=== PATIENT | female | born 1960 | race Caucasian/White ===

== ENCOUNTER → 2016-06-26 | Outpatient (CLI) | payer OTHER ==
--- NOTE | 2016-06-26 09:43 | US ---
EXAMINATION TYPE: US abdomen complete DATE OF EXAM: 06/26/2016 8:31 AM COMPARISON: 12/16/2012 CLINICAL HISTORY: 56-year-old female abdominal RUQ Pain R10.11. Right flank pain, sometimes worse aft er eating. TECHNIQUE: Multiple sonographic images of the abdomen were obtained. FINDINGS: Liver Length: 14.8 cm Gallbladder Wall: 0.2 cm CBD: 0.5 cm Spleen: 7.9 cm Right Kidney: 9.2 x 3.3 x 4.3 cm Left Kidney: 9.3 x 4.4 x 4.6 cm Pancreas: Suboptimal visualization of the pancreatic tail secondary to shadowing from bowel gas. Vis ualized portions appear within normal limits. Liver: Normal size but with increased echogenicity. There is a small 1.1cm septated cyst within the left lobe. A couple adjacent cysts measuring up to 9 mm were seen previously. Overall appearance is u nchanged. Gallbladder: No abnormal gallbladder distention, wall thickening, pericholecystic fluid, or shadowin g calculi. Evidence for sonographic Ya's sign: no CBD: Within normal limits. Spleen: wnl Right Kidney: No hydronephrosis. Left Kidney: No hydronephrosis. Upper IVC: wnl Abd Aorta: wnl as seen IMPRESSION: Echogenic and slightly attenuating liver suggesting hepatic steatosis. Correlate with LFTs, lipid pro file, and patient risk factors. 2 adjacent cysts versus a septated cyst is redemonstrated within the left hepatic lobe measuring 1.1 cm.
== END | disposition home or self-care (01) ==
LOC: RADUSWWP 08:10
PROVIDERS: ATTEND Family Medicine
DX: R10.11 Right upper quadrant pain (principal)
CPT/HCPCS: 76700

== ENCOUNTER → 2016-08-20 | Outpatient (CLI) | payer OTHER ==
--- NOTE | 2016-08-20 09:32 | NM ---
EXAMINATION TYPE: NM hepatobiliary w EF DATE OF EXAM: 08/20/2016 9:16 AM COMPARISON: NONE INDICATION: Right upper quadrant pain TECHNIQUE: After the intravenous administration of 5.4 mCi Tc 99m Mebrofenin hepatobiliary scintigrap hy is performed. Images were obtained immediately post injection. FINDINGS: There is prompt uptake and excretion of radiotracer by the liver. Extrahepatic ducts are identified at 4 minutes. The gallbladder is visualized within 6 minutes. Small bowel activity is noted within 40 minutes. At one hour 8 ounces of oral ensure plus is given to mimic CCK and gallbladder ejection fraction is c alculated at 88 %, which is elevated. (Normal >35% and <80%.). IMPRESSION: 1. Biliary hyperkinesia.
== END | disposition home or self-care (01) ==
LOC: RADNMMAIN 07:00
PROVIDERS: ATTEND Family Medicine
DX: K82.8 Other specified diseases of gallbladder (principal); R10.11 Right upper quadrant pain
CPT/HCPCS: 78226; A9537

== ENCOUNTER → 2017-04-18 | Outpatient (CLI) | payer OTHER ==
--- NOTE | 2017-04-21 07:58 | MM ---
Reason for exam: additional evaluation requested from prior study. Last mammogram was performed 1 year ago. History: Patient is postmenopausal and has history of breast cancer at age 42. Family history of breast cancer in paternal aunt at age 82. Retro-pectoral saline implants in both breasts, June 2004. Malignant stereotactic core biopsy of the right breast, December 16, 2002. Saline implants in both breasts. Core biopsy of the right breast. Excisional biopsy of the left breast. Lumpectomy of the right breast. Radiation therapy of the right breast. Implant Removal of both breasts. Took tamoxifen for 5 years beginning at age 42. Physical Findings: Nurse did not find any significant physical abnormalities on exam. MG Diag Mamm Implants AMP[facility]O w CAD Bilateral CC, MLO, and ID view(s) were taken. Prior study comparison: April 17, 2016, bilateral MG 3d diag mammo imp w/cad [facility]. May 24, 2014, bilateral MG diagnostic mammo w CAD [facility]. The breast tissue is heterogeneously dense. This may lower the sensitivity of mammography. Stable post lumpectomy changes in the right breast. Bilateral implants are intact. No significant new findings when compared with previous films. These results were verbally communicated with the patient and result sheet given to the patient on 04/18/17. ASSESSMENT: Benign, BI-RAD 2 RECOMMENDATION: Follow-up diagnostic mammogram of both breasts in 1 year.
== END ==
LOC: RADMAMWWP 14:07
PROVIDERS: ATTEND Obstetrics & Gynecology
DX: Z08 Encounter for follow-up examination after completed treatment for malignant neoplasm (principal); Z85.3 Personal history of malignant neoplasm of breast

== ENCOUNTER → 2017-12-25 | Outpatient (CLI) | payer OTHER ==
--- NOTE | 2017-12-25 16:26 | CT ---
EXAMINATION TYPE: CT brain wo con DATE OF EXAM: 12/25/2017 COMPARISON: NONE HISTORY: dizziness/vertigo for over a week CT DLP: 1036.0 mGycm. Automated Exposure Control for Dose Reduction was Utilized. TECHNIQUE: CT scan of the head is performed without contrast. FINDINGS: There is no acute intracranial hemorrhage, mass effect, or midline shift identified. The ventricles and sulci are within normal limits in size. The globes are intact and the visualized sin uses are clear. Possible soft tissue density seen medial to the left ossicles on series 4 image 11 an d possible bandlike linear middle ear cavity density seen within the right hypotympanum of the middle ear cavity. Internal auditory canal CT could be performed for further evaluation given this patient' s history of dizziness and vertigo. Mastoid air cells appear well aerated as do the paranasal sinuses with surgical augmentation of the right ostiomeatal complex and left maxillary thin osseous septum. IMPRESSION: 1. No acute intracranial hemorrhage, mass effect, or midline shift is seen. 2. Bilateral middle ear cavity soft tissue densities that could be further evaluated on CT internal a uditory canals to evaluated for left-sided cholesteatoma and right-sided hypotympanum scarring/granul ation tissue.
== END ==
LOC: RADCTMAIN 15:40
PROVIDERS: ATTEND Family Medicine
DX: R94.8 Abnormal results of function studies of other organs and systems (principal); R42 Dizziness and giddiness
CPT/HCPCS: 70450

== ENCOUNTER → 2018-01-15 | Outpatient (CLI) | payer OTHER ==
--- NOTE | 2018-01-16 08:52 | CT ---
EXAMINATION TYPE: CT iac w con DATE OF EXAM: 01/15/2018 COMPARISON: CT brain 12/25/2017 HISTORY: Dizziness x6 weeks CT DLP: 150 mGycm Automated exposure control for dose reduction was used. CONTRAST: CT scan of the IACs is performed with IV Contrast, patient injected with 100 mL of Isovue 300. FINDINGS: The left middle ear fluid has resolved. Mastoid air cells are clear. The attic is clear. In cus and malleus orientation is normal. No adjacent fluid is evident. Cochlea and semicircular canals on the left are unremarkable. Scutum are normal bilaterally. The right attic is clear. Incus and malleus have normal orientation. T here is some persistent mild thickening to the tympanic membrane region There is been a prior right uncinate ectomy. Left uncinated is evident. Ethmoidectomies been performe d. Paranasal sinuses are clear. IMPRESSION: 1. Mild persistent thickening of the right tympanic membrane. 2. No suspicious persistent soft tissue density evident. 3. Post sinus surgery.
== END | disposition home or self-care (01) ==
LOC: RADCTMAIN 17:27
PROVIDERS: ATTEND Family Medicine
DX: H71.93 Unspecified cholesteatoma, bilateral (principal)
CPT/HCPCS: 70481; Q9967

== ENCOUNTER → 2018-02-18 | Outpatient (CLI) | payer OTHER ==
--- NOTE | 2018-02-18 13:25 | US ---
EXAMINATION TYPE: US kidneys/renal and bladder DATE OF EXAM: 02/18/2018 COMPARISON: NONE CLINICAL HISTORY: 57-year-old female R94.4 abnormal results of kidney function studies. TECHNIQUE: Multiple sonographic images of the kidneys and bladder are obtained. FINDINGS: EXAM MEASUREMENTS: Right Kidney: 8.8 x 3.6 x 4.1 cm Left Kidney: 9.4 x 4.6 x 5.0 cm Right Kidney: Measuring small but symmetric to the left, No hydronephrosis. Left Kidney: No hydronephrosis. Bladder: wnl Bilateral Jets seen: yes IMPRESSION: Slightly small size of the kidneys may reflect underlying chronic medical renal disease. There is no hydronephrosis.
== END ==
LOC: RADUSWWP 12:50
PROVIDERS: ATTEND Family Medicine
DX: R94.4 Abnormal results of kidney function studies (principal)
CPT/HCPCS: 76770

== ENCOUNTER → 2018-04-21 | Outpatient (CLI) | payer OTHER ==
--- NOTE | 2018-04-21 14:31 | MM ---
Reason for exam: additional evaluation requested from prior study. Last mammogram was performed 1 year ago. History: Patient is postmenopausal and has history of breast cancer at age 42. Family history of breast cancer in paternal aunt at age 82. Retro-pectoral saline implants in both breasts, June 2004. Malignant stereotactic core biopsy of the right breast, December 16, 2002. Saline implants in both breasts. Core biopsy of the right breast. Excisional biopsy of the left breast. Lumpectomy of the right breast. Radiation therapy of the right breast. Implant Removal of both breasts. Took tamoxifen for 5 years beginning at age 42. Physical Findings: Nurse did not find any significant physical abnormalities on exam. MG 3D Diag Mammo Imp W/Cad [facility] Bilateral CC and MLO view(s) were taken. Prior study comparison: April 18, 2017, bilateral MG diag mamm implants AMPARO w CAD. April 17, 2016, bilateral MG 3d diag mammo imp w/cad [facility]. There are scattered fibroglandular densities. No significant new findings when compared with previous films. These results were verbally communicated with the patient and result sheet given to the patient on 04/21/18. ASSESSMENT: Benign, BI-RAD 2 RECOMMENDATION: Follow-up diagnostic mammogram of both breasts in 1 year.
== END | disposition home or self-care (01) ==
LOC: RADMAMWWP 13:01
PROVIDERS: ATTEND Obstetrics & Gynecology
DX: Z08 Encounter for follow-up examination after completed treatment for malignant neoplasm (principal); Z85.3 Personal history of malignant neoplasm of breast
CPT/HCPCS: 77062; 77066

== ENCOUNTER → 2018-10-01 | Outpatient (CLI) | payer OTHER ==
[2018-10-01 11:10] LABS: Basophils # (A) 0.1 k/uL (0-0.2); Basophils % (A) 1 %; Eosinophils # (A) 0.1 k/uL (0-0.7); Eosinophils % (A) 2 %; HGB 14.5 gm/dL (11.4-16.0); Lymphocytes # (A) 1.9 k/uL (1.0-4.8); Lymphocytes % (A) 34 %; MCH 29.5 pg (25.0-35.0); MCHC 32.9 g/dL (31.0-37.0); MCV 89.6 fL (80.0-100.0); Mean Platelet Volume 7.6; Monocytes # (A) 0.2 k/uL (0-1.0); Monocytes % (A) 4 %; Neutrophils # (A) 3.3 k/uL (1.3-7.7); Neutrophils % (A) 57 %; Platelet Count 208 k/uL (150-450); RBC 4.91 m/uL (3.80-5.40); RDW 14.2 % (11.5-15.5); WBC 5.7 k/uL (3.8-10.6)
[2018-10-01 11:32] LABS: Appearance,Urine Clear (Clear); Bacteria,Urine Rare /hpf; Bilirubin,Urine Negative (Negative); Blood,Urine Negative (Negative); Color,Urine Light Yellow; Glucose,Urine (UA) Negative (Negative); Ketones,Urine Negative (Negative); Leukocyte Esterase,Urine Small (Negative); Nitrite,Urine Negative (Negative); PH, Urine 6.5 (5.0-8.0); Protein,Urine Negative (Negative); Specific Gravity,Urine 1.009 (1.001-1.035); Squamous Epithelial Cell,Urine 2 /hpf (0-4); Urobilinogen,Urine <2.0 mg/dL (<2.0); WBC,Urine 9 /hpf (0-5)
[2018-10-01 16:07] LABS: Iron Saturation 28.7 (12.00-45.00)
[2018-10-01 16:20] LABS: Parathyroid Hormone Intact 71.6 pg/mL (14.0-72.0)
[2018-10-01 16:49] LABS: Albumin 4.7 g/dL (3.80-4.90); Anion Gap 6.8 mmol/L (4.00-12.00); Calcium 9.5 mg/dL (8.7-10.3); Carbon Dioxide 28.2 mmol/L (21.6-31.8); Magnesium 2.1 mg/dL (1.5-2.4); Phosphorus 3.1 mg/dL (2.4-5.1); Potassium 4.3 mmol/L (3.5-5.5); Uric Acid 6.9 mg/dL (2.9-7.7)
[2018-10-01 16:55] LABS: Creatinine,Urine Random 44.1 mg/dL
[2018-10-01 16:56] LABS: T4, Free (Free Thyroxine) 1.2 ng/dL (0.80-1.80)
[2018-10-01 17:16] LABS: Total Protein,Urine Random 4.7 mg/dL (0.0-13.5)
== END | disposition home or self-care (01) ==
LOC: LABWHC1 10:25
PROVIDERS: ATTEND Internal Medicine Nephrology
DX: N39.0 Urinary tract infection, site not specified (principal); E55.9 Vitamin D deficiency, unspecified; E21.3 Hyperparathyroidism, unspecified; D63.1 Anemia in chronic kidney disease; N18.3 Chronic kidney disease, stage 3 (moderate); M10.9 Gout, unspecified; R80.9 Proteinuria, unspecified; E03.9 Hypothyroidism, unspecified
CPT/HCPCS: 36415; 80048; 81001; 82040; 82306; 82570; 82728; 83540; 83550; 83735; 83970; 84100; 84156; 84439; 84443; 84550; 85025

== ENCOUNTER → 2019-04-22 | Outpatient (CLI) | payer OTHER ==
--- NOTE | 2019-04-22 14:42 | MM ---
Reason for exam: screening (asymptomatic). Last mammogram was performed 1 year ago. History: Patient is postmenopausal and has history of breast cancer at age 42. Family history of breast cancer in paternal aunt at age 82. Retro-pectoral saline implants in both breasts, June 2004. Malignant stereotactic core biopsy of the right breast, December 16, 2002. Saline implants in both breasts. Core biopsy of the right breast. Excisional biopsy of the left breast. Lumpectomy of the right breast. Radiation therapy of the right breast. Implant Removal of both breasts. Took tamoxifen for 5 years beginning at age 42. Physical Findings: A clinical breast exam by your physician is recommended on an annual basis and results should be correlated with mammographic findings. MG 3D Diag Mammo Imp W/Cad AMP[facility]O Bilateral CC and MLO view(s) were taken. Prior study comparison: April 21, 2018, bilateral MG 3d diag mammo imp w/cad [facility]. April 18, 2017, bilateral MG diag mamm implants AMP[facility]O w CAD. The breast tissue is heterogeneously dense. This may lower the sensitivity of mammography. No suspicious abnormality. Bilateral retropectoral saline implants. No significant new findings when compared with previous films. These results were verbally communicated with the patient and result sheet given to the patient on 04/22/19. ASSESSMENT: Negative, BI-RAD 1 RECOMMENDATION: Follow-up diagnostic mammogram of both breasts in 1 year.
== END | disposition home or self-care (01) ==
LOC: RADMAMWWP 13:28
PROVIDERS: ATTEND Obstetrics & Gynecology
DX: Z08 Encounter for follow-up examination after completed treatment for malignant neoplasm (principal); Z85.3 Personal history of malignant neoplasm of breast
CPT/HCPCS: 77062; 77066

== ENCOUNTER → 2020-05-09 | Outpatient (CLI) | payer OTHER ==
--- NOTE | 2020-05-09 12:03 | MM ---
Reason for exam: additional evaluation requested from prior study. Last mammogram was performed 1 year and 1 month ago. History: Patient is postmenopausal and has history of breast cancer at age 42. Family history of breast cancer in paternal aunt at age 82. Retro-pectoral saline implants in both breasts, June 2004. Malignant stereotactic core biopsy of the right breast, December 16, 2002. Saline implants in both breasts. Core biopsy of the right breast. Excisional biopsy of the left breast. Lumpectomy of the right breast. Radiation therapy of the right breast. Implant Removal of both breasts. Took tamoxifen for 5 years beginning at age 42. Physical Findings: Nurse did not find any significant physical abnormalities on exam. MG 3D Diag Mammo Imp W/Cad AMPARO Bilateral CC and MLO view(s) were taken. Prior study comparison: April 22, 2019, bilateral MG 3d diag mammo imp w/cad [facility]. April 21, 2018, bilateral MG 3d diag mammo imp w/cad [facility]. There are scattered fibroglandular densities. No significant new findings when compared with previous films. These results were verbally communicated with the patient and result sheet given to the patient on 05/09/20. ASSESSMENT: Benign, BI-RAD 2 RECOMMENDATION: Follow-up diagnostic mammogram of both breasts in 1 year.
== END | disposition home or self-care (01) ==
LOC: RADMAMWWP 11:01
PROVIDERS: ATTEND Obstetrics & Gynecology
DX: Z08 Encounter for follow-up examination after completed treatment for malignant neoplasm (principal); Z85.3 Personal history of malignant neoplasm of breast
CPT/HCPCS: 77062; 77066

== ENCOUNTER → 2021-02-24 | Outpatient (CLI) | payer BC ==
[2021-02-24 09:22] LABS: Appearance,Urine Clear (Clear); Bilirubin,Urine Negative (Negative); Blood,Urine Negative (Negative); Color,Urine Colorless; Glucose,Urine (UA) Negative (Negative); Ketones,Urine Negative (Negative); Leukocyte Esterase,Urine Negative (Negative); Nitrite,Urine Negative (Negative); Protein,Urine Negative (Negative); Specific Gravity,Urine 1.006 (1.001-1.035); Urobilinogen,Urine <2.0 mg/dL (<2.0)
[2021-02-24 20:50] LABS: African American GFR (CKD) 76.1 (60.0-200.0); Albumin 4.6 g/dL (3.8-4.9); Albumin/Globulin Ratio 1.91 (1.60-3.17); Anion Gap 14.8 mmol/L (4.00-12.00); BUN/Creat Ratio 14.54 Ratio (12.00-20.00); Blood Urea Nitrogen 13.8 mg/dL (9.0-27.0); Calcium 9.2 mg/dL (8.7-10.3); Carbon Dioxide 22.2 mmol/L (21.6-31.8); Chol/HDL Ratio 2.88 Ratio; Globulin 2.4 g/dL (1.6-3.3); HDL Cholesterol 71.3 mg/dL (40.00-60.00); LDL Cholesterol,Calculated 113.5 mg/dL (0.0-131.0); Non-African American GFR(CKD) 65.6 (60.0-200.0); Potassium 4.2 mmol/L (3.5-5.5); T4, Free (Free Thyroxine) 1.49 ng/dL (0.800-1.800); Total Bilirubin 0.4 mg/dL (0.30-1.20); VLDL Calculation 20.2 mg/dL (5.00-40.00)
== END | disposition home or self-care (01) ==
LOC: LABWHC1 08:40
PROVIDERS: ATTEND Family Medicine
DX: Z00.00 Encounter for general adult medical examination without abnormal findings (principal); E55.9 Vitamin D deficiency, unspecified; E03.9 Hypothyroidism, unspecified
CPT/HCPCS: 36415; 80053; 80061; 81003; 82306; 84439; 84443; 84481; 85027

== ENCOUNTER → 2021-03-03 | Outpatient (CLI) | payer BC ==
[2021-03-03 13:06] LABS: HCT 45.9 % (37.2-46.3); HGB 14.8 g/dL (12.0-15.0); MCH 29.5 pg (27.0-32.0); MCHC 32.2 g/dL (32.0-37.0); MCV 91.4 fL (80.0-97.0); Mean Platelet Volume 10.6 fL (9.5-12.2); Platelet Count 215 X 10*3/uL (140-440); RBC 5.02 X 10*6/uL (4.10-5.20); RDW 13.6 % (11.5-14.5); WBC 7.47 X 10*3/uL (4.50-10.00)
== END | disposition home or self-care (01) ==
LOC: LABWHC1 08:20
PROVIDERS: ATTEND Family Medicine
DX: Z00.00 Encounter for general adult medical examination without abnormal findings (principal); E55.9 Vitamin D deficiency, unspecified; E03.9 Hypothyroidism, unspecified
CPT/HCPCS: 36415; 85027

== ENCOUNTER → 2021-04-21 | Outpatient (CLI) | payer BC ==
[2021-04-21 18:11] LABS: T4, Free (Free Thyroxine) 1.72 ng/dL (0.800-1.800)
== END | disposition home or self-care (01) ==
LOC: LABWHC1 10:06
PROVIDERS: ATTEND Family Medicine
DX: E03.9 Hypothyroidism, unspecified (principal)
CPT/HCPCS: 36415; 84439; 84443

== ENCOUNTER → 2021-05-24 | Outpatient (CLI) | payer BC ==
--- NOTE | 2021-05-24 12:37 | MM ---
Reason for exam: additional evaluation requested from prior study. Last mammogram was performed 1 year ago. History: Patient is postmenopausal and has history of breast cancer at age 42. Family history of breast cancer in paternal aunt at age 82. Retro-pectoral saline implants in both breasts, June 2004. Malignant stereotactic core biopsy of the right breast, December 16, 2002. Silicone gel implants in both breasts, 1982. Core biopsy of the right breast. Excisional biopsy of the left breast. Lumpectomy of the right breast. Radiation therapy of the right breast. Implant Removal of both breasts. Took tamoxifen for 5 years beginning at age 42. Physical Findings: Nurse did not find any significant physical abnormalities on exam. MG 3D Diag Mammo Imp W/Cad AMPARO Bilateral CC, MLO, and ID view(s) were taken. Prior study comparison: May 09, 2020, bilateral MG 3d diag mammo imp w/cad [facility]. April 22, 2019, bilateral MG 3d diag mammo imp w/cad [facility]. The breast tissue is heterogeneously dense. This may lower the sensitivity of mammography. Bilateral retropectoral saline implants. Post surgical and post therapy change right breast. Left CC view nodular asymmetry on the implant view disperses on implant displacement. No significant new findings when compared with previous films. These results were verbally communicated with the patient and result sheet given to the patient on 05/24/21. ASSESSMENT: Benign, BI-RAD 2 RECOMMENDATION: Routine screening mammogram of both breasts in 1 year.
== END | disposition home or self-care (01) ==
LOC: RADMAMWWP 11:05
PROVIDERS: ATTEND Obstetrics & Gynecology
DX: R92.8 Other abnormal and inconclusive findings on diagnostic imaging of breast (principal); Z78.0 Asymptomatic menopausal state; Z85.3 Personal history of malignant neoplasm of breast
CPT/HCPCS: 77062; 77066

== ENCOUNTER → 2021-06-12 | Outpatient (CLI) | payer BC ==
--- NOTE | 2021-06-12 18:01 | BD ---
EXAMINATION TYPE: Axial Bone Density DATE OF EXAM: 06/12/2021 COMPARISON: 04/17/2016 CLINICAL HISTORY: Postmenopausal screening Height: 65.5 IN Weight: 173 LBS FRAX RISK QUESTIONS: Secondary Osteoporosis: 3. Menopause before 45: AGE 41 RISK FACTORS HISTORY OF: Family History of Osteoporosis: YES MOTHER, AUNTS, UNCLES Active: YES Postmenopausal woman: AGE 41 MEDICATIONS: Thyroid Medications: YES Which medication: Synthroid How Lon+ YEARS Additional Medications: CALCIUM, VIT D, SYNTHROID, MAGNESIUM, EFFEXOR, WELLBUTRIN, ATIVAN, Additional History: BREAST CANCER WITH RADIATION EXAM MEASUREMENTS: Bone mineral densitometry was performed using the [employer] System. Bone mineral density as measured about the Lumbar spine is: ----- L1-L4(G/cm2): 1.395 T Score Values are as follows: ----- L2: 1.4 ----- L3: 1.9 ----- L4: 2.3 ----- L1-L4: 1.8 Bone mineral density has: Increased 4.3% since study of: 04/17/2016 Bone mineral density about the R hip (g/cm2): 0.919 Bone mineral density about the L hip (g/cm2): 0.972 T Score values are as follows: -----R Neck: -0.9 -----L Neck: -0.5 -----R Total: -0.3 -----L Total: 0.2 Bone mineral density has: Increased 1.5% since study of: 04/17/2016 IMPRESSION: Normal (Values between +1 and -1 indicate normal bone mass). Note that measurements are approaching o steopenia at the right hip. Consider repeating this study in 5 years or sooner if there is some new c linical indication. NOTE: T-SCORE=SD OF THE YOUNG ADULT MEAN.
== END | disposition home or self-care (01) ==
LOC: RADBDWWP 15:42
PROVIDERS: ATTEND Obstetrics & Gynecology
DX: N95.1 Menopausal and female climacteric states (principal); Z85.3 Personal history of malignant neoplasm of breast
CPT/HCPCS: 77080

== ENCOUNTER → 2021-07-04 | Outpatient (CLI) | payer BC ==
[2021-07-04 15:28] LABS: Partial Thromboplastin Time 25.7 sec (22.0-30.0); Prothrombin Time 10.5 sec (9.0-12.0)
[2021-07-04 15:49] LABS: Appearance,Urine Clear (Clear); Bilirubin,Urine Negative (Negative); Blood,Urine Negative (Negative); Color,Urine Colorless; Glucose,Urine (UA) Negative (Negative); Ketones,Urine Negative (Negative); Leukocyte Esterase,Urine Negative (Negative); Nitrite,Urine Negative (Negative); PH, Urine 5.5 (5.0-8.0); Protein,Urine Negative (Negative); Specific Gravity,Urine 1.003 (1.001-1.035); Urobilinogen,Urine <2.0 mg/dL (<2.0)
[2021-07-04 15:58] LABS: Creatinine,Urine Random 15.5 mg/dL; Protein/Creatinine Ratio,Urine 0.839
[2021-07-04 19:19] LABS: Basophils # (A) 0.08 X 10*3/uL (0.00-0.10); Eosinophils # (A) 0.07 X 10*3/uL (0.04-0.35); Eosinophils % (A) 0.8 %; HCT 45.6 % (37.2-46.3); HGB 14.5 g/dL (12.0-15.0); Immature Grans, Automated 0.2 %; Lymphocytes # (A) 2.25 X 10*3/uL (0.90-5.00); Lymphocytes % (A) 27.2 %; MCH 28.7 pg (27.0-32.0); MCHC 31.8 g/dL (32.0-37.0); MCV 90.3 fL (80.0-97.0); Mean Platelet Volume 10.9 fL (9.5-12.2); Monocytes # (A) 0.56 X 10*3/uL (0.20-1.00); Monocytes % (A) 6.8 %; NRBC Per 100 WBC 0 /100 WBCS (0.0-0.0); Platelet Count 244 X 10*3/uL (140-440); RBC 5.05 X 10*6/uL (4.10-5.20); RDW 13.6 % (11.5-14.5); WBC 8.28 X 10*3/uL (4.50-10.00)
[2021-07-04 19:55] LABS: ALT 23 U/L (8-44); AST 19 U/L (13-35); African American GFR (CKD) 75.4 (60.0-200.0); Albumin 4.8 g/dL (3.8-4.9); Albumin/Globulin Ratio 1.81 (1.60-3.17); Alkaline Phosphatase 108 U/L (41-126); BUN/Creat Ratio 15.67 Ratio (12.00-20.00); Blood Urea Nitrogen 14.9 mg/dL (9.0-27.0); Calcium 10.3 mg/dL (8.7-10.3); Carbon Dioxide 25.7 mmol/L (20.0-27.5); Chloride 104 mmol/L (96-109); Globulin 2.6 g/dL (1.6-3.3); Glucose 82 mg/dL (70-110); Potassium 4.6 mmol/L (3.5-5.5); Sodium 143 mmol/L (135-145); Total Bilirubin <0.15 mg/dL (0.30-1.20); Total Protein 7.4 g/dL (6.2-8.2)
== END | disposition home or self-care (01) ==
LOC: LABWHC1 13:48
PROVIDERS: ATTEND Nurse Practitioner Family
DX: Z01.818 Encounter for other preprocedural examination (principal); E03.9 Hypothyroidism, unspecified; D64.9 Anemia, unspecified; N18.2 Chronic kidney disease, stage 2 (mild); N39.0 Urinary tract infection, site not specified; N25.81 Secondary hyperparathyroidism of renal origin; R80.9 Proteinuria, unspecified
CPT/HCPCS: 36415; 80053; 81003; 82306; 82570; 83970; 84156; 84439; 84443; 84481; 85025; 85610; 85730; 93005

== ENCOUNTER → 2021-11-09 | Outpatient (CLI) | payer BC ==
[2021-11-09 15:09] LABS: T4, Free (Free Thyroxine) 1.53 ng/dL (0.800-1.800)
== END | disposition home or self-care (01) ==
LOC: LABWHC1 10:09
PROVIDERS: ATTEND Family Medicine
DX: E03.9 Hypothyroidism, unspecified (principal); E55.9 Vitamin D deficiency, unspecified
CPT/HCPCS: 36415; 82306; 84439; 84443; 84481

== ENCOUNTER 2021-11-16 08:56 | Day surgery (SDC) | payer BC ==
[2021-09-20 09:56] VITALS: BMI 26.6
[~2021-11-16 08:56] MED LIST: LACTATED RINGERS 1,000 ML IV SCH
[2021-11-16 09:47] VITALS: TEMP 96.5
[2021-11-16 09:59] LABS: Glucose,Whole Blood 93 mg/dL (70-110)
[2021-11-16] MEDS ORDERED: PROPOFOL 10 MG/ML 20 ML VIAL IV ONE (10:24)
[2021-11-16] MEDS ORDERED: MIDAZOLAM 2 MG/2 ML VIAL ONE (10:24)
[2021-11-16] MEDS ORDERED: fentaNYL (PF) 50 MCG/ML 2 ML AMP ONE (10:24)
--- NOTE | 2021-11-16 10:45 | P.PCN ---
Date of Procedure: 11/16/21 Procedure(s) Performed: BRIEF HISTORY: Patient is a 61-year-old pleasant 8 female scheduled for an elective colonoscopy as a part of lower abdominal pain, change in bowel habits and intermittent rectal bleeding for the last 6 months duration. PROCEDURE PERFORMED: Colonoscopy. PREOPERATIVE DIAGNOSIS: Lower abdominal pain/change in bowel habits and intermittent rectal bleeding. IV sedation per Anesthesia. PROCEDURE: After informed consent was obtained, the patient, was brought into the endoscopy unit. IV sedation was administered by Anesthesia under continuous monitoring. Digital rectal examination was normal. Initially the Olympus CF-160 flexible video colonoscope was then inserted in the rectum, gradually advanced into the cecum without any difficulty. Careful examination was performed as the scope was gradually being withdrawn. Ileocecal valve and the appendiceal orifice were visualized and appeared normal. Prep was fair. Mucosa of the cecum, ascending colon, transverse colon, descending colon, sigmoid colon, and rectum appeared normal. Retroflexion was performed in the rectum and small internal hemorrhoids were seen. The patient tolerated the procedure well. IMPRESSION: Normal-appearing colon from rectum to cecum no evidence of colorectal neoplasia No evidence of colitis Small internal hemorrhoids RECOMMENDATIONS: Findings of this examination were discussed with the patient as well as a family. She was advised to be a high-fiber diet and fiber supplements a regular basis. Admitted repeat screening colonoscopy in 10 years..
[2021-11-16 11:13] VITALS: BP 112/73; PULSE 68; RESP 17
[2021-11-16] MEDS ORDERED: HYDROcodone/APAP 5-325MG 1 EACH TAB PO ONE (11:25)
== END 2021-11-16 11:25 | disposition home or self-care (01) ==
LOC: ORWHC2ENDO 08:56
PROVIDERS: ATTEND Internal Medicine Gastroenterology
DX: K64.8 Other hemorrhoids (principal); R19.4 Change in bowel habit; N28.9 Disorder of kidney and ureter, unspecified; Z79.890 Hormone replacement therapy; Z79.899 Other long term (current) drug therapy; Z88.0 Allergy status to penicillin; Z91.09 Other allergy status, other than to drugs and biological substances
CPT/HCPCS: 45378; J2250; J3010; J2704

== ENCOUNTER → 2022-01-02 | Outpatient (CLI) | payer BC ==
[2022-01-02 17:28] LABS: Creatinine,Urine Random 118.8 mg/dL; Protein/Creatinine Ratio,Urine 0.067
[2022-01-02 22:38] LABS: HCT 44.5 % (37.2-46.3); HGB 14.6 g/dL (12.0-15.0); MCHC 32.8 g/dL (32.0-37.0); MCV 88.5 fL (80.0-97.0); Mean Platelet Volume 10.6 fL (9.5-12.2); NRBC Per 100 WBC 0 /100 WBCS (0.0-0.0); Platelet Count 219 X 10*3/uL (140-440); RBC 5.03 X 10*6/uL (4.10-5.20); RDW 13.5 % (11.5-14.5); WBC 7.58 X 10*3/uL (4.50-10.00)
[2022-01-02 22:39] LABS: Appearance,Urine Clear (Clear); Bilirubin,Urine Negative (Negative); Blood,Urine Negative (Negative); Color,Urine Yellow (Yellow); Ketones,Urine Negative (Negative); Nitrite,Urine Negative (Negative); Specific Gravity,Urine 1.012 (1.001-1.030); Urobilinogen,Urine 0.2 (0.2,1.0)
[2022-01-02 22:48] LABS: Bacteria,Urine None Seen /HPF (None Seen)
[2022-01-02 23:11] LABS: % Iron Saturation 30.16 (12.00-45.00); African American GFR (CKD) 80.6 (60.0-200.0); Anion Gap 14.2 mmol/L (10.00-18.00); BUN/Creat Ratio 13.56 Ratio (12.00-20.00); Blood Urea Nitrogen 12.2 mg/dL (9.0-27.0); Calcium 9.6 mg/dL (8.7-10.3); Carbon Dioxide 20.5 mmol/L (20.0-27.5); Magnesium 2.1 mg/dL (1.5-2.4); Non-African American GFR(CKD) 69.5 (60.0-200.0); Phosphorus 3.2 mg/dL (2.4-5.1); Uric Acid 7.3 mg/dL (2.9-7.7)
[2022-01-03 00:50] LABS: Albumin 4.6 g/dL (3.8-4.9); Ferritin 52.2 ng/mL (10.0-291.0)
== END | disposition home or self-care (01) ==
LOC: LABWHC1 15:04
PROVIDERS: ATTEND Internal Medicine Nephrology
DX: N18.2 Chronic kidney disease, stage 2 (mild) (principal)
CPT/HCPCS: 36415; 80048; 81001; 82040; 82306; 82570; 82728; 83540; 83550; 83735; 83970; 84100; 84156; 84550; 85027

== ENCOUNTER → 2022-02-22 | Outpatient (CLI) | payer BC ==
[2022-02-23 00:17] LABS: T4, Free (Free Thyroxine) 1.37 ng/dL (0.800-1.800)
== END | disposition home or self-care (01) ==
LOC: LABWHC1 14:17
PROVIDERS: ATTEND Family Medicine
DX: E03.9 Hypothyroidism, unspecified (principal)
CPT/HCPCS: 36415; 84439; 84443; 84481

== ENCOUNTER → 2022-10-09 | Outpatient (CLI) | payer BC ==
[2022-10-10 02:33] LABS: T4, Free (Free Thyroxine) 1.35 ng/dL (0.800-1.800)
--- NOTE | 2022-10-10 21:00 | MM ---
Reason for Exam: Screening (asymptomatic). Last mammogram was performed 1 year(s) and 4 month(s) ago. Patient History: Menarche at age 14. First Full-Term at age 22. Postmenopausal. Breast cancer, right, age 42. Tamoxifen for 5 years from age 42 until age 47. Lumpectomy on the Right side. Core Biopsy on the Right side. Excisional Biopsy on the Left side. 12/16/2002, Malignant Stereotactic Core Biopsy on the right side. 2021, Bilateral Implant Removal. Bilateral Implant Removal. Radiation Therapy, right. 1982, Bilateral Implants. 06/2004, Bilateral Implants. Paternal aunt had breast cancer, age 82. Niece had breast cancer, age 45. Prior Study Comparison: 04/22/2019 Bilateral Diagnostic Mammogram, [facility]. 05/09/2020 Bilateral Diagnostic Mammogram, [facility]. 05/24/2021 Bilateral Diagnostic Mammogram, [facility]. Tissue Density: The breast tissue is heterogeneously dense. This may lower the sensitivity of mammography. Findings: Analyzed By CAD. Posterior posttreatment changes right breast. Interval removal of the patient's previous bilateral breast implants. No significant mass or suspicious microcalcification is seen. The right breast in particular is very limited due to small size. Overall Assessment: Benign, BI-RAD 2 Management: Screening Mammogram of both breasts in 1 year. Very limited assessment of the right breast due to small size.. Consider supplementary screening with breast ultrasound. Patient should continue monthly self-breast exams. A clinical breast exam by your physician is recommended on an annual basis. This exam should not preclude additional follow-up of suspicious palpable abnormalities. Note on Josi scores and lifetime risk: 1. A Josi score greater than 3% is considered moderate risk. If this is the case, consider specialist referral to assess eligibility for a risk reducing agent. 2. If overall lifetime risk for the development of breast cancer is 20% or higher, the patient may qualify for future screening with alternating mammogram and breast MRI. Electronically signed and approved by: Erwin Baker M.D. Radiologist
== END | disposition home or self-care (01) ==
LOC: RADMAMWWP 15:11
PROVIDERS: ATTEND Obstetrics & Gynecology
DX: Z12.31 Encounter for screening mammogram for malignant neoplasm of breast (principal); E03.9 Hypothyroidism, unspecified; E55.9 Vitamin D deficiency, unspecified; Z78.0 Asymptomatic menopausal state; Z85.3 Personal history of malignant neoplasm of breast; Z80.3 Family history of malignant neoplasm of breast
CPT/HCPCS: 77067; 82306; 84439; 84443

== ENCOUNTER → 2022-10-23 | Outpatient (CLI) | payer BC ==
--- NOTE | 2022-10-23 15:29 | XR ---
EXAMINATION TYPE: XR hand complete LT, XR wrist complete LT DATE OF EXAM: 10/23/2022 3:22 PM INDICATION: Patient age:Female; 62 years old; Reason for study: M79.642; [facility]. COMPARISON: None TECHNIQUE: PA, lateral and oblique views of the left hand were obtained. PA, lateral, and oblique vie ws of the left wrist were obtained. FINDINGS: Normal alignment of the visualized joints. No acute osseous pathology is identified. No e vidence of soft tissue swelling. No radiopaque foreign body. IMPRESSION: No acute osseous pathology.
--- NOTE | 2022-10-23 15:32 | MR ---
MRI CERVICAL SPINE: CLINICAL HISTORY: Cervical region radiculopathy. Headaches with neck pain into left upper extremity p er patient. TECHNIQUE: Multiplanar, multisequence imaging of the cervical spine is performed without IV contrast. COMPARISON: None. FINDINGS: Sagittal images of the cervical spine show the craniocervical junction to appear within nor mal limits. The cervical and upper thoracic spinal cord is normal in course, caliber, and signal. Sl ight grade 1 anterolisthesis C3 on C4. The vertebral body and intravertebral disk heights are normal . The bone marrow signal intensity is within normal limits. Axial images at C2-C3 level appear within normal limits. Axial images at C3-C4 level show broad-based right paracentral disc protrusion minimally effacing ant erior thecal sac with patent bilateral neural foramina. Axial images at C4-C5 level showed broad based right paracentral disc protrusion mildly effacing ante rolateral thecal sac and causing mild to moderate right-sided neural foraminal narrowing due to kiesha inal disc extension. Axial images at C5-C6 levels show broad-based posterior disc protrusion effacing anterior thecal sac along with left foraminal component causing moderate left-sided neural foraminal narrowing. There is mild right-sided neural foraminal narrowing. Axial images at C6-C7 level show small right paracentral disc protrusion mildly effacing the anterior thecal sac. Patent bilateral neural foramina. Axial images at C7-T1 level appear within normal limits. Mild mucosal thickening involving the left maxillary sinus and sphenoid sinus sagittal image 10. IMPRESSION: Multilevel degenerative change in the cervical spine as detailed above.
== END | disposition home or self-care (01) ==
LOC: RADMRIMAIN 14:05
PROVIDERS: ATTEND Family Medicine
DX: M47.22 Other spondylosis with radiculopathy, cervical region (principal); M50.11 Cervical disc disorder with radiculopathy, high cervical region; M79.642 Pain in left hand; M25.532 Pain in left wrist
CPT/HCPCS: 72141

== ENCOUNTER → 2022-12-19 | Outpatient (CLI) | payer BC ==
[2022-12-19 17:13] LABS: ALT 20 U/L (8-44); AST 18 U/L (13-35); Albumin 4.5 d/dL (3.8-4.9); Albumin/Globulin Ratio 1.73 Ratio (1.60-3.17); Alkaline Phosphatase 106 U/L (41-126); BUN/Creat Ratio 11.22 Ratio (12.00-20.00); Blood Urea Nitrogen 10.1 mg/dL (9.0-27.0); Calcium 9.9 mg/dL (8.7-10.3); Carbon Dioxide 26.1 mmol/L (21.6-31.8); Chloride 105 mmol/L (96-109); Globulin 2.6 d/dL (1.6-3.3); Glucose 104 mg/dL (70-110); Potassium 3.9 mmol/L (3.5-5.5); Sodium 142 mmol/L (135-145); Total Bilirubin 0.3 mg/dL (0.3-1.2); Total Protein 7.1 d/dL (6.2-8.2)
[2022-12-19 22:46] LABS: Microalbumin Creatinine Ratio <24 mg/g Cr (0-30); Urine Creatinine 50.9 mg/dL (28.0-217.0)
== END | disposition home or self-care (01) ==
LOC: LABWHC1 09:59
PROVIDERS: ATTEND Internal Medicine Nephrology
DX: N18.2 Chronic kidney disease, stage 2 (mild) (principal)
CPT/HCPCS: 36415; 80053; 82043; 82570

== ENCOUNTER → 2023-03-29 | Outpatient (CLI) | payer BC ==
[2023-03-29 10:34] LABS: Appearance,Urine Clear (Clear); Bacteria,Urine Rare /hpf; Bilirubin,Urine Negative (Negative); Blood,Urine Negative (Negative); Color,Urine Colorless; Glucose,Urine (UA) Negative (Negative); Ketones,Urine Negative (Negative); Leukocyte Esterase,Urine Moderate (Negative); Nitrite,Urine Negative (Negative); Protein,Urine Negative (Negative); RBC,Urine <1 /hpf (0-5); Specific Gravity,Urine 1.012 (1.001-1.035); Squamous Epithelial Cell,Urine <1 /hpf (0-4); Urobilinogen,Urine <2.0 mg/dL (<2.0); WBC,Urine 8 /hpf (0-5)
[2023-03-29 13:47] LABS: HCT 45.7 % (37.2-46.3); HGB 14.5 g/dL (12.0-15.0); MCH 28.6 pg (27.0-32.0); MCHC 31.7 g/dL (32.0-37.0); MCV 90.1 FL (80.0-97.0); Mean Platelet Volume 10.1 FL (9.5-12.2); NRBC Per 100 WBC 0 X 10*3/uL (0.00-0.01); Platelet Count 231 X 10*3/uL (140-440); RBC 5.07 X 10*6/uL (4.10-5.20); RDW 14.4 % (11.5-14.5)
[2023-03-29 14:09] LABS: ALT 23 U/L (8-44); AST 20 U/L (13-35); Albumin 4.5 g/dL (3.8-4.9); Albumin/Globulin Ratio 1.61 Ratio (1.60-3.17); Alkaline Phosphatase 107 U/L (41-126); BUN/Creat Ratio 14.89 Ratio (12.00-20.00); Blood Urea Nitrogen 13.4 mg/dL (9.0-27.0); Carbon Dioxide 27.2 mmol/L (21.6-31.8); Chloride 104 mmol/L (96-109); Chol/HDL Ratio 3.08 Ratio; Creatine Kinase 60 U/L (26-186); Globulin 2.8 g/dL (1.6-3.3); Glucose 107 mg/dL (70-110); LDL Cholesterol,Calculated 131.9 mg/dL (0.0-131.0); Potassium 4.7 mmol/L (3.5-5.5); Rheumatoid Factor, Qnt <15 IU/mL (0-15); Sodium 143 mmol/L (135-145); T4, Free (Free Thyroxine) 1.16 ng/dL (0.80-1.80); Total Bilirubin 0.5 mg/dL (0.3-1.2); Total Protein 7.3 g/dL (6.2-8.2); Uric Acid 7.6 mg/dL (2.9-7.7)
[2023-03-29 14:24] LABS: Erythrocyte Sedimentation Rate 24 mm/Hr (0-30)
== END | disposition home or self-care (01) ==
LOC: LABWHC1 08:32
PROVIDERS: ATTEND Family Medicine
DX: Z00.00 Encounter for general adult medical examination without abnormal findings (principal); E03.9 Hypothyroidism, unspecified; M35.3 Polymyalgia rheumatica; M25.50 Pain in unspecified joint; E55.9 Vitamin D deficiency, unspecified
CPT/HCPCS: 36415; 80053; 80061; 81001; 82306; 82550; 82607; 82746; 83036; 84439; 84443; 84550; 85027; 85652; 86038; 86140; 86431

== ENCOUNTER → 2023-09-25 | Outpatient (CLI) | payer BC ==
[2023-09-25 16:41] LABS: T4, Free (Free Thyroxine) 1.84 ng/dL (0.80-1.80)
== END | disposition home or self-care (01) ==
LOC: LABWHC1 11:27
PROVIDERS: ATTEND Family Medicine
DX: E03.9 Hypothyroidism, unspecified (principal); E55.9 Vitamin D deficiency, unspecified
CPT/HCPCS: 36415; 82306; 84439; 84443

== ENCOUNTER → 2023-11-25 | Outpatient (CLI) | payer BC ==
[2023-11-25 17:35] LABS: T4, Free (Free Thyroxine) 1.67 ng/dL (0.80-1.80)
== END | disposition home or self-care (01) ==
LOC: LABWHC1 09:32
PROVIDERS: ATTEND Family Medicine
DX: E03.9 Hypothyroidism, unspecified (principal)
CPT/HCPCS: 36415; 84439; 84443

== ENCOUNTER → 2023-12-10 | Outpatient (CLI) | payer BC ==
[2023-12-10 15:06] LABS: Basophils # (A) 0.06 X 10*3/uL (0.00-0.10); Eosinophils # (A) 0.08 X 10*3/uL (0.04-0.35); Eosinophils % (A) 1.3 %; HCT 44.3 % (37.2-46.3); HGB 14.3 g/dL (12.0-15.0); Lymphocytes # (A) 1.54 X 10*3/uL (0.90-5.00); Lymphocytes % (A) 25.4 %; MCH 28.9 pg (27.0-32.0); MCHC 32.3 g/dL (32.0-37.0); MCV 89.7 FL (80.0-97.0); Mean Platelet Volume 10.6 FL (9.5-12.2); Monocytes # (A) 0.42 X 10*3/uL (0.20-1.00); Monocytes % (A) 6.9 %; NRBC Per 100 WBC 0 X 10*3/uL (0.00-0.01); Neutrophils # (A) 3.95 X 10*3/uL (1.80-7.70); Neutrophils % (A) 65.2 %; Platelet Count 219 X 10*3/uL (140-440); RBC 4.94 X 10*6/uL (4.10-5.20); RDW 13.6 % (11.5-14.5); WBC 6.06 X 10*3/uL (4.50-10.00)
== END | disposition home or self-care (01) ==
LOC: LABWHC1 08:41
PROVIDERS: ATTEND Family Medicine
DX: K92.1 Melena (principal)
CPT/HCPCS: 36415; 85025

== ENCOUNTER → 2024-01-13 | Outpatient (CLI) | payer BC ==
[2024-01-13 15:20] LABS: HGB 13.4 g/dL (12.0-15.0); MCH 28.6 pg (27.0-32.0); MCHC 31.9 g/dL (32.0-37.0); MCV 89.7 FL (80.0-97.0); Mean Platelet Volume 10.8 FL (9.5-12.2); NRBC Per 100 WBC 0 X 10*3/uL (0.00-0.01); Platelet Count 217 X 10*3/uL (140-440); RBC 4.68 X 10*6/uL (4.10-5.20); RDW 13.9 % (11.5-14.5); WBC 5.46 X 10*3/uL (4.50-10.00)
[2024-01-13 15:21] LABS: Basophils # (A) 0.05 X 10*3/uL (0.00-0.10); Basophils % (A) 0.9 %; Eosinophils % (A) 1.8 %; Lymphocytes # (A) 1.61 X 10*3/uL (0.90-5.00); Lymphocytes % (A) 29.5 %; Monocytes # (A) 0.42 X 10*3/uL (0.20-1.00); Monocytes % (A) 7.7 %; Neutrophils # (A) 3.26 X 10*3/uL (1.80-7.70); Neutrophils % (A) 59.7 %
[2024-01-13 18:49] LABS: T4, Free (Free Thyroxine) 1.68 ng/dL (0.80-1.80)
== END ==
LOC: LABWHC1 07:20
PROVIDERS: ATTEND Family Medicine
DX: E03.9 Hypothyroidism, unspecified (principal)
CPT/HCPCS: 36415; 84439; 84443; 84481; 85025

== ENCOUNTER → 2024-01-23 | Outpatient (CLI) | payer BC ==
--- NOTE | 2024-01-23 10:00 | USB ---
Reason for Exam: Hx of breast cancer, mastectomy. Patient History: Menarche at age 14. First Full-Term at age 22. Postmenopausal. Breast cancer, right, age 42. Tamoxifen for 5 years from age 42 until age 47. Lumpectomy on the Right side. Core Biopsy on the Right side. Excisional Biopsy on the Left side. 12/16/2002, Malignant Stereotactic Core Biopsy on the right side. 2021, Bilateral Implant Removal. Bilateral Implant Removal. Radiation Therapy, right. 1982, Bilateral Implants. 06/2004, Bilateral Implants. Paternal aunt had breast cancer, age 82. Niece had breast cancer, age 45. Prior Study Comparison: 05/09/2020 Bilateral Diagnostic Mammogram, [facility]. 05/24/2021 Bilateral Diagnostic Mammogram, [facility]. 10/09/2022 Bilateral MG screening mammo w CAD, [facility]. Findings: The whole breast of the right breast, the axilla of the right breast and the retroareolar of the right breast were scanned. A complete US of all four quadrants of the breast, axilla, and retro-areolar region were reviewed. Patient status post right mastectomy. No solid or cystic masses are identified. No axillary adenopathy. Overall Assessment: Incomplete: need additional imaging evaluation, BI-RAD 0 Management: Screening Mammogram of the left breast. Await screening results for the left breast. A clinical breast exam by your physician is recommended on an annual basis and results should be correlated with mammographic findings. This exam should not preclude additional follow-up of suspicious palpable abnormalities. Results were given to the patient verbally at the time of exam. Electronically signed and approved by: Erwin Baker M.D. Radiologist
--- NOTE | 2024-01-25 11:15 | MM ---
Reason for Exam: Screening (asymptomatic). Last mammogram was performed 1 year(s) and 4 month(s) ago. Patient History: Menarche at age 14. First Full-Term at age 22. Postmenopausal. Breast cancer, right, age 42. Tamoxifen for 5 years from age 42 until age 47. Lumpectomy on the Right side. Core Biopsy on the Right side. Excisional Biopsy on the Left side. 12/16/2002, Malignant Stereotactic Core Biopsy on the right side. 2021, Bilateral Implant Removal. Bilateral Implant Removal. Radiation Therapy, right. 1982, Bilateral Implants. 06/2004, Bilateral Implants. Paternal aunt had breast cancer, age 82. Niece had breast cancer, age 45. Prior Study Comparison: 05/09/2020 Bilateral Diagnostic Mammogram, [facility]. 05/24/2021 Bilateral Diagnostic Mammogram, [facility]. 10/09/2022 Bilateral MG screening mammo w CAD, [facility]. Tissue Density: Left: The breasts are heterogeneously dense, which may obscure small masses. Findings: Analyzed By CAD. Left breast: Surgical changes suspected with scar present. There is no suspicious group of microcalcifications or new suspicious mass. Overall Assessment: Benign, BI-RAD 2 Management: Screening Mammogram of both breasts in [address] [facility] will attempt to contact patient to return for supplemental views and ultrasound if indicated. Patient should continue monthly self-breast exams. A clinical breast exam by your physician is recommended on an annual basis. This exam should not preclude additional follow-up of suspicious palpable abnormalities. Note on Josi scores and lifetime risk: 1. A Jsoi score greater than 3% is considered moderate risk. If this is the case, consider specialist referral to assess eligibility for a risk reducing agent. 2. If overall lifetime risk for the development of breast cancer is 20% or higher, the patient may qualify for future screening with alternating mammogram and breast MRI. Electronically signed and approved by: Mynor Wu DO
== END | disposition home or self-care (01) ==
LOC: RADMAMWWP 08:55
PROVIDERS: ATTEND Obstetrics & Gynecology
DX: Z12.31 Encounter for screening mammogram for malignant neoplasm of breast (principal); Z85.3 Personal history of malignant neoplasm of breast; Z78.0 Asymptomatic menopausal state; Z80.3 Family history of malignant neoplasm of breast; R92.332 Mammographic heterogeneous density, left breast
CPT/HCPCS: 77067

== ENCOUNTER → 2024-03-05 | Outpatient (CLI) | payer BC ==
[2024-03-05 15:48] LABS: T4, Free (Free Thyroxine) 1.34 ng/dL (0.80-1.80)
== END | disposition home or self-care (01) ==
LOC: LABWHC1 08:39
PROVIDERS: ATTEND Family Medicine
DX: E03.9 Hypothyroidism, unspecified (principal)
CPT/HCPCS: 36415; 84439; 84443; 84481

== ENCOUNTER → 2024-04-02 | Outpatient (CLI) | payer BC ==
[2024-04-02 15:13] LABS: HCT 45.7 % (37.2-46.3); HGB 14.7 g/dL (12.0-15.0); MCH 29.6 pg (27.0-32.0); MCHC 32.2 g/dL (32.0-37.0); Mean Platelet Volume 10.1 FL (9.5-12.2); NRBC Per 100 WBC 0 X 10*3/uL (0.00-0.01); Platelet Count 230 X 10*3/uL (140-440); RBC 4.97 X 10*6/uL (4.10-5.20); RDW 14.2 % (11.5-14.5); WBC 6.66 X 10*3/uL (4.50-10.00)
[2024-04-02 15:51] LABS: Appearance,Urine Clear (Clear); Bilirubin,Urine Negative (Negative); Blood,Urine Negative (Negative); Color,Urine Yellow (Yellow); Ketones,Urine Negative (Negative); Nitrite,Urine Negative (Negative); PH, Urine 6.5; Specific Gravity,Urine 1.016 (1.001-1.030); Urobilinogen,Urine 0.2 E.U./DL
[2024-04-02 16:00] LABS: Bacteria,Urine None Seen (None Seen)
[2024-04-02 16:07] LABS: ALT 25 U/L (8-44); AST 20 U/L (13-35); Albumin 4.4 g/dL (3.8-4.9); Albumin/Globulin Ratio 1.63 Ratio (1.60-3.17); Alkaline Phosphatase 109 U/L (41-126); Blood Urea Nitrogen 13.5 mg/dL (9.0-27.0); Calcium 9.5 mg/dL (8.7-10.3); Carbon Dioxide 26.2 mmol/L (21.6-31.8); Chloride 104 mmol/L (96-109); Chol/HDL Ratio 2.86 Ratio; Globulin 2.7 g/dL (1.6-3.3); Glucose 95 mg/dL (70-110); LDL Cholesterol,Calculated 145.6 mg/dL (0.0-131.0); Potassium 4.2 mmol/L (3.5-5.5); Sodium 141 mmol/L (135-145); T4, Free (Free Thyroxine) 1.05 ng/dL (0.80-1.80); Total Bilirubin 0.4 mg/dL (0.3-1.2); Total Protein 7.1 g/dL (6.2-8.2); VLDL Calculation 14.34 mg/dL (5.00-40.00)
== END | disposition home or self-care (01) ==
LOC: LABWHC1 07:36
PROVIDERS: ATTEND Family Medicine
DX: Z00.00 Encounter for general adult medical examination without abnormal findings (principal); E03.9 Hypothyroidism, unspecified
CPT/HCPCS: 36415; 80053; 80061; 81001; 82306; 83036; 84439; 84443; 85027

== ENCOUNTER → 2024-10-07 | Outpatient (CLI) | payer BC ==
[2024-10-07 20:54] LABS: Blood Urea Nitrogen 10.1 mg/dL (9.0-27.0); Calcium 9.3 mg/dL (8.7-10.3); Carbon Dioxide 21.8 mmol/L (21.6-31.8); Chloride 102 mmol/L (96-109); Glucose 103 mg/dL (70-110); Sodium 140 mmol/L (135-145); T4, Free (Free Thyroxine) 1.18 ng/dL (0.80-1.80)
== END | disposition home or self-care (01) ==
LOC: LABWHC1 10:45
PROVIDERS: ATTEND Family Medicine
DX: E03.9 Hypothyroidism, unspecified (principal); E55.9 Vitamin D deficiency, unspecified
CPT/HCPCS: 36415; 80048; 82306; 84439; 84443; 84481

== ENCOUNTER → 2024-11-22 | Outpatient (CLI) | payer BC ==
[2024-11-22 21:35] LABS: T4, Free (Free Thyroxine) 1.49 ng/dL (0.80-1.80)
== END | disposition home or self-care (01) ==
LOC: LABWHC1 14:12
PROVIDERS: ATTEND Family Medicine
DX: E03.8 Other specified hypothyroidism (principal)
CPT/HCPCS: 36415; 84439; 84443